=== PATIENT | female | born 1985 | race Caucasian/White ===

== ENCOUNTER 2025-01-19 12:58 | Outpatient (CLI) | payer OTHER, SELFPAY ==
--- NOTE | ~2025-01-19 | MMUS_ITS ---
EXAMINATION: MM diagnostic deena BI w gustabo, US breast LT limited HISTORY: Palpable abnormality on the left TECHNIQUE: Craniocaudal and mediolateral oblique 3-D tomosynthesis images were obtained and synthetic 2-D images were generated. CAD analysis was submitted and interpreted. Grayscale sonography over the area(s) of interest with color Doppler if there is a finding. COMPARISON: None available. BREAST PARENCHYMAL COMPOSITION: Dense: The breasts are heterogeneously dense MAMMOGRAM FINDINGS: No suspicious masses are seen. There are no suspicious calcifications. No unexplained architectural distortion is seen. There are no skin or nipple abnormalities identified. There is no adenopathy seen on the images submitted. ULTRASOUND FINDINGS: No cystic or solid masses are seen in the area(s) of concern. IMPRESSION: No mammographic evidence to suggest malignancy is seen. Negative or inconclusive breast imaging studies should not deter biopsy if there are clinically suspicious palpable abnormalities. The patient may return to screening mammography as per ACR guidelines. If the mother indeed had breast CA at age 33, She should be screening with annual mammography at this point. In addition, screening MR is recommended at one year intervals, to be staggered each 6 months with a screening mammography. BI-RADS 1 - Negative. Reviewed, dictated and finalized at location B. ETT FEEDER IMPRESSION: No mammographic evidence to suggest malignancy is seen. Negative or inconclusiv e breast imaging studies should not deter biopsy if there are clinically suspic ious palpable abnormalities. The patient may return to screening mammography a s per ACR guidelines. If the mother indeed had breast CA at age 33, She should be screening with annual mammography at this point. In addition, screening MR i s recommended at one year intervals, to be staggered each 6 months with a scree brandyn mammography. BI-RADS 1 - Negative.
--- OUTSIDE RECORDS SUMMARY | 2025-01-19 13:50 | XMS_ITS | Clinical Summary ---
Author Organization [facility] Address [address] [place] [address] Care Team Providers Care Associate Software Development Engineer Name Role Phone Jyotsna Warren MD Unavailable [phone] Anai Woods DPM Unavailable [phone] Jyotsna Warren MD Primary Care Provider Allergies No known active allergies Medications norethindrone (MICRONOR) 0.35 mg tablet Take 1 tablet (0.35 mg total) by mouth daily 08/30/2022 Active oxyCODONE-acetam inophen (PERCOCET) 5-325 mg per tabletIndication s:Pain Take 1 tablet by mouth every 4 (four) hours as needed for pain 40 tablet 08/16/2023 Active Active Problems Problem Noted Date Diagnosed Date Acquired hammer toe of right foot 07/24/2023 Metatarsalgia of right foot 07/24/2023 Family history of breast cancer 10/17/2022 Encounter for nonprocreative genetic counseling and testing 10/17/2022 Encounter for screening mammogram for breast can cer 10/17/2022 Breast cancer screening, high risk patient 10/17 Hammer toe of left foot 09/12/2022 Metatarsalgia of left foot 09/12/2022 Surgical History Surgery Date Site/Laterality Comments TONSILLECTOMY AND ADENOIDECTOMY CORRECTION HAMMER TOE 02/18/2022 - 02/17/2023 Left Medical History Medical History Date Comments Asthma Family History Medical History Relation Name Comments Breast cancer Maternal Grandmother Breast cancer Mother Breast cancer Other Relation Name Status Comments Maternal Grandmother Mother Other Social History Tobacco Use Types Packs/Day Years Used Date Smoking Tobacco: Every Day Cigarettes Passive Smoke Exposure: Current Smokeless Tobacco: Never Tobacco Cessation:Ready to Q uit: Not Asked; Counseling Given: Not Answered AUDIT-C Answer Date Recorded Q1: How often do you have a drink containing alc ohol? 2-4 times a month 08/12/2023 Q2: How many drinks containi ng alcohol do you have on a typical day when you are drinking? 7 to 9 08/12/2023 Frequency of Binge Drinking Not on file 07/20 Personal Safety Answer Date Recorded Have you ever been in or are you currently in a harmful physical or emotional relationship or is someone making you feel afraid or unsafe? 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 Gender Identity Not on file Sexual Orientation Not on file Last Filed Vital Signs Vital Sign Reading Time Taken Comments Blood Pressure 112/62 08/16/2023 2:25 PM CDT Pulse 70 08/16/2023 2:25 PM CDT Temperature 36.6 C (97.9 F) 08/16/2023 2:25 PM CDT Respiratory Rate 20 08/16/2023 2:25 PM CDT Oxygen Saturation 97% 08/16/2023 2:25 PM CDT Inhaled Oxygen Concentration - - Weight 81.3 kg (179 lb 3.7 oz) 08/16/2023 10:20 AM CDT Height 177.8 cm (5' 10) 08/16/2023 10:20 AM CDT Body Mass Index 25.72 08/16/2023 10:20 AM CDT Plan of Treatment Health Maintenance Due Date Last Done Comments Cervical Cancer Screening 1987 Depression Screening 1987 Hepatitis C Screening 1987 Varicella Vaccines (1 of 2 - 13+ 2-dose series) 2000 Hepatitis B Screening 2005 Regular Well Visit/Exam 18-64 2005 Pneumococcal vaccine <65 (1 of 2 - PCV) 2006 HPV Vaccines (1 - 3-dose SCDM series) 2014 Covid-19 Vaccine (2 - 2024- season) 2024 Influenza Vaccine (#1) 2024 12/28/2019, 2017 DTaP/Tdap/Td Vaccine (2 - Td or Tdap) 11/22/202705/2017 Medical Devices Implanted Type Area Sanitary Landfill Supervisor Device Identifier Shelf Expiration Date Model / Serial / Lot [employer] Arely 1.1mm 152mm Trocar Point 2 End Style 1 Wire Fixation [id number] - Sn/A - [id number] Implanted:Qty: 1 on 10/05/2022 by Anai Woods DPM at [facility] Wire Left: Toes [employer] C1713 09/15/2031 [id number] / N/A / [id number] [employer] Arely 1.1mm 152mm [place]car [place] 2 End Style 1 Wire Fixation [id number] - Sna - [id number] Implanted:Qty: 1 on 10/05/2022 by Anai Woods DPM at [facility] Wire Left: Toes [employer] C1713 07/17/2031 [id number] / NA / [id number] [employer] Screw Bone Compression Cannulated St Full Thread Locking Max Vpc 2.5x12mm Ti [id number] - [id number] Implanted:Qty: 2 on 10/05/2022 by Anai Woods DPM at [facility] Left: Toes [employer] [id number] / / [employer] Screw Bone Compression Cannulated St Full Thread Locking Max Vpc 2.5x12mm Ti [id number] - [id number] Implanted:Qty: 1 on 08/16/2023 by Anai Woods DPM at [facility] Right: Foot [employer] [id number] / / [employer] Max Vpc 2.5mm 14mm Cannulated Headless Screw Bone Nonsterile [id number] - [id number] Implanted:Qty: 1 on 08/16/2023 by Anai Woods DPM at [facility] Right: Foot [employer] [id number] / / [employer] Arely 1.1mm 152mm Trocar Point 2 End Style 1 Wire Fixation [id number] - [id number] Implanted:Qty: 1 on 08/16/2023 by Anai Woods DPM at [facility] Right: Foot [employer] [id number] / / Explanted Type Area Sanitary Landfill Supervisor Device Identifier Shelf Expiration Date Model / Serial / Lot [employer] Arely 1.1mm 152mm [place]car [place] 2 End Style 1 Wire Fixation [id number] - Sna - [id number] Explanted:Qty: 1 on 10/05/2022 by Anai Woods DPM at [facility] Wire Left: Toes [employer] C1713 10/18/2024 [id number] / NA / [id number] Insurance [id number] [facility] Member Subscriber Plan / Payer (Ef fective 2019-Present) Name:Ashlie Kelley Relation to Subscriber:Self Name:Ashlie Kelley Payer ID:[id number] (NAIC) Type:MEDICAID RISK OTHER Address: [place] [id number] Care Teams Associate Software Development Engineer Relationship Specialty Start Date End Date Briana, Jyotsna Madison, MD [address] [place] [address] PCP - General Breast Surgery 10/24/22 Jyotsna Warren MD [address] [facility] [address] [place] [address] Surgeon Breast Surgery 09/13/22 Anai Woods DPM [address] [place] [address] Consulting Physician Foot and Ankle Surg 10/05/22
== END 2025-01-19 12:59 | disposition home or self-care (01) ==
LOC: ANHFOHIMG 13:00
PROVIDERS: Visit Provider Hospitalist
DX: N63.21 Unspecified lump in the left breast, upper outer quadrant (principal)
CPT/HCPCS: 76642; 77062; 77066; G0279